=== PATIENT | female | born 1935 | race Caucasian/White ===

== ENCOUNTER 2016-08-26 02:05 | Emergency (ER) | payer MEDICAID ==
[~2016-08-26] VITALS: Ht 149.9 cm; Wt 55.0 kg
[2016-08-26 02:10] VITALS: BP 179/77; PULSE 84; RESP 16; TEMP 98.5; O2SAT 96
[2016-08-26] MEDS ORDERED: METO25TA3 PO (02:29)
[2016-08-26] MEDS ORDERED: METO2.5T PO (02:29)
[2016-08-26] MEDS ORDERED: HYDR-3801 PO (02:29)
[2016-08-26] MEDS ORDERED: MEGE40TA PO (02:29)
[2016-08-26] MEDS ORDERED: VOLT1GEL4 TOPICAL (02:29)
[2016-08-26] MEDS ORDERED: ASPI81CH CHEW (02:29)
[2016-08-26] MEDS ORDERED: SERT-132 PO (02:29)
[2016-08-26] MEDS ORDERED: FURO40TA PO (02:29)
[2016-08-26] MEDS ORDERED: VALS1TAB70 PO (02:29)
[2016-08-26] MEDS ORDERED: SODIUM CHLORIDE 0.9% FLUSH 10 ML FLUSH IV FLUSH PRN (03:15)
--- NOTE | 2016-08-26 03:34 | PD ---
HPI . Swollen abdomen Chief Complaint: GI Complaint Time Seen by Provider: 03:07 Travel History International Travel<30 days: No Contact w/Intl Traveler<30days: No Traveled to known affect area: No History of Present Illness HPI This is an elderly woman who presents to us with ascites. She is reportedly followed at another facility for ascites. Her daughter states that the ascites is secondary to heart failure. The patient was supposed to have had a paracentesis done a couple weeks ago did not have enough fluid accumulation in her abdomen toward paracentesis at that time. The daughter states that her abdomen has become acutely swollen over the course of the last 24-36 hours. The patient reports minimal discomfort. She states that she is not having any difficulty breathing. They are unsure as to what may have caused the acute exacerbation in the swelling. PFSH Past Medical History Hypertension: Yes Medical other: Yes (LIVER DYSFUNCTION WITH PARACENTESIS) Influenza Vaccination: Yes : 3 Para: 3 Past Surgical History Cardiac Surgery: Yes (PACEMAKER) Hysterectomy: Yes Pacemaker: Yes (BIOTRONIK) Valve Replacement: Yes Social History Alcohol Use: No Tobacco Use: No Substance Use: No Allergies-Medications (Allergen,Severity, Reaction): Coded Allergies: No Known Allergies (Unverified , 08/26/16) Reported Meds & Prescriptions Reported Meds & Active Scripts Active Reported Voltaren (Diclofenac Sodium) 100 Gm Gel..gram. 1 Applic TOPICAL BID Valsartan 320 Mg Tab 320 Mg PO DAILY Sertraline (Sertraline HCl) 50 Mg Tab 50 Mg PO DAILY Metoprolol Tartrate 25 Mg Tab 25 Mg PO DAILY Metolazone 2.5 Mg Tab 2.5 Mg PO Megestrol (Megestrol Acetate) 40 Mg Tab 40 Mg PO DAILY Hydralazine (Hydralazine HCl) 100 Mg Tab 25 Mg PO BID Take with meals Furosemide 40 Mg Tab 40 Mg PO DAILY Aspirin 81 Mg Chew 81 Mg CHEW DAILY Review of Systems Except as stated in HPI: all other systems reviewed are Neg General / Constitutional: No: Fever, Chills Cardiovascular: No: Chest Pain or Discomfort Respiratory: No: Shortness of Breath Gastrointestinal: No: Nausea, Vomiting, Diarrhea, Abdominal Pain, Loss of Appetite Genitourinary: No: Urgency, Frequency, Dysuria Physical Exam Narrative GENERAL: Elderly woman who does not appear to be in any acute distress. SKIN: Warm and dry. HEAD: Atraumatic. Normocephalic. EYES: Pupils equal and round. Extraocular movements are intact. ENT: No nasal bleeding or discharge. Mucous membranes pink and moist. NECK: Trachea midline. Neck is supple. CARDIOVASCULAR: Regular rate and rhythm. RESPIRATORY: No accessory muscle use. GASTROINTESTINAL: Abdomen soft. Nontender. She is distended with ascites but her abdomen is soft. MUSCULOSKELETAL: No obvious deformities. No edema. NEUROLOGICAL: Awake and alert. No obvious cranial nerve deficits. Motor grossly within normal limits. Normal speech. PSYCHIATRIC: Appropriate mood and affect; insight and judgment normal. Data Data Last Documented VS Vital Signs Date Time Temp Pulse Resp B/P Pulse Ox O2 Delivery O2 Flow Rate FiO2 08/26/16 02:10 98.5 84 16 179/77 96 Room Air Orders Complete Blood Count With Diff (08/26/16 03:09) Comprehensive Metabolic Panel (08/26/16 03:09) Prothrombin Time / Inr (Pt) (08/26/16 03:09) Act Partial Throm Time (Ptt) (08/26/16 03:09) Ct Abd/Pel W/O Iv Contrast (08/26/16 03:09) Iv Access Insert/Monitor (08/26/16 03:09) Sodium Chloride 0.9% Flush (Ns Flush) (08/26/16 03:15) Labs Laboratory Tests Test 08/26/16 04:25 White Blood Count 6.3 TH/MM3 Red Blood Count 2.92 MIL/MM3 Hemoglobin 8.6 GM/DL Hematocrit 26.8 % Mean Corpuscular Volume 91.7 FL Mean Corpuscular Hemoglobin 29.6 PG Mean Corpuscular Hemoglobin 32.2 % Concent Red Cell Distribution Width 15.7 % Platelet Count 176 TH/MM3 Mean Platelet Volume 9.1 FL Neutrophils (%) (Auto) 82.0 % Lymphocytes (%) (Auto) 6.3 % Monocytes (%) (Auto) 9.9 % Eosinophils (%) (Auto) 0.9 % Basophils (%) (Auto) 0.9 % Neutrophils # (Auto) 5.1 TH/MM3 Lymphocytes # (Auto) 0.4 TH/MM3 Monocytes # (Auto) 0.6 TH/MM3 Eosinophils # (Auto) 0.1 TH/MM3 Basophils # (Auto) 0.1 TH/MM3 CBC Comment DIFF FINAL Differential Comment Prothrombin Time 12.8 SEC Prothromb Time International 1.2 RATIO Ratio Activated Partial 24.6 SEC Thromboplast Time Sodium Level 143 MEQ/L Potassium Level 3.6 MEQ/L Chloride Level 106 MEQ/L Carbon Dioxide Level 27.5 MEQ/L Anion Gap 10 MEQ/L Blood Urea Nitrogen 91 MG/DL Creatinine 2.43 MG/DL Estimat Glomerular Filtration 19 ML/MIN Rate Random Glucose 151 MG/DL Calcium Level 8.8 MG/DL Total Bilirubin 0.6 MG/DL Aspartate Amino Transf 27 U/L (AST/SGOT) Alanine Aminotransferase 16 U/L (ALT/SGPT) Alkaline Phosphatase 86 U/L Total Protein 8.6 GM/DL Albumin 3.6 GM/DL [facility] Medical Decision Making Medical Screen Exam Complete: Yes Emergency Medical Condition: Yes Medical Record Reviewed: Yes (this patient has never been seen at our facility before.) Differential Diagnosis Differential diagnosis includes but is not limited to ascites, fecal impaction Narrative Course This patient presents with a swollen abdomen. She reportedly has a history of ascites which has been drained in the past. This is all been done at another facility. CBC & BMP Diagram 08/26/16 04:25 Coags are normal. Last Impressions Abdomen/Pelvis CT 08/26/16 0309 Signed Impressions: Service Date/Time: Friday, August 26, 2016 03:37 - CONCLUSION: 1. There is moderate amount of ascites throughout the abdomen and pelvis and the liver appears cirrhotic and clinical correlation is suggested. 2. Large anterior abdominal wall hernia with multiloculated septated fluid collections within the anterior abdominal wall may be loculated and septated ascites, however inflammatory change and/or abscess is difficult to exclude. There is no evidence for bowel obstruction, however incarceration of the herniated mesenteric fat is difficult to exclude. 3. Cholelithiasis. Joyce Matthew MD I have put in a consult to interventional radiology for a paracentesis. Diagnosis Primary Impression: Ascites Qualified Code: R18.8 - Other ascites Patient Instructions: Ascites (DC), General Instructions Condition: Stable Cassi Goldman MD Aug 26, 2016 03:33
--- NOTE | 2016-08-26 04:04 | RADRPT ---
EXAM DATE/TIME: 08/26/2016 03:37 [facility] COMPARISON: No previous studies available for comparison. INDICATIONS : Abdominal distention. Possible ascites. ORAL CONTRAST: No oral contrast ingested. RADIATION DOSE: 7.97 CTDIvol (mGy) MEDICAL HISTORY : Hypertension. Congestive heart failure. SURGICAL HISTORY : Hysterectomy. Pacemaker. ENCOUNTER: Initial ACUITY: 1 day PAIN SCALE: 5/10 LOCATION: Bilateral abdomen TECHNIQUE: Volumetric scanning of the abdomen and pelvis was performed. Using automated exposure control and ad justment of the mA and/or kV according to patient size, radiation dose was kept as low as reasonably achievable to obtain optimal diagnostic quality images. FINDINGS: There is moderate amount of ascites throughout the abdomen and pelvis. There is a large anterior abdominal wall hernia with herniation of loops of large and small bowel and ascitic fluid. Within th e anterior abdominal wall subcutaneous tissue there multiple loculated and septated fluid collections probably loculated ascites, however inflammatory change and or abscess is difficult to exclude. [employer] lani vascular calcifications are present involving the aorta, iliac arteries without any significant s tenosis or aneurysmal dilatations for technique. Slight bibasilar atelectasis and/or infiltrate is se en. The liver is somewhat shrunken in appearance and may be cirrhotic. The spleen, adrenals are unrem arkable and there is an approximate 9.1 cm simple cyst in the left kidney. There are scattered divert iculi mainly in the sigmoid colon without definite signs of diverticulitis. The gallbladder demonstra jv multiple stones without gallbladder wall thickening, or pericholecystic fluid. CONCLUSION: 1. There is moderate amount of ascites throughout the abdomen and pelvis and the liver appears cirrho tic and clinical correlation is suggested. 2. Large anterior abdominal wall hernia with multiloculated septated fluid collections within the ant erior abdominal wall may be loculated and septated ascites, however inflammatory change and/or absces s is difficult to exclude. There is no evidence for bowel obstruction, however incarceration of the h erniated mesenteric fat is difficult to exclude. 3. Cholelithiasis. Joyce Matthew MD on August 26, 2016 at 3:54 Board Certified Radiologist. This report was verified electronically.
[2016-08-26 04:41] LABS: AUTOMATED NEUTROPHIL # 5.1 TH/MM3 (1.8-7.7); BASOPHIL # 0.1 TH/MM3 (0-0.2); BASOPHIL % 0.9 % (0.0-2.0); EOSINOPHIL # 0.1 TH/MM3 (0-0.4); EOSINOPHIL % 0.9 % (0.0-4.0); HEMATOCRIT 26.8 % (35.0-46.0); HEMO FLAGS DIFF FINAL; LYMPH % 6.3 % (9.0-44.0); LYMPHOCYTE # 0.4 TH/MM3 (1.0-4.8); MEAN CELL VOLUME 91.7 FL (80.0-100.0); MEAN CORPUSCULAR HEMOGLOBIN 29.6 PG (27.0-34.0); MEAN CORPUSCULAR HGB CONC 32.2 % (32.0-36.0); MONO % 9.9 % (0.0-8.0); PLATELET COUNT 176 TH/MM3 (150-450); RED BLOOD COUNT 2.92 MIL/MM3 (4.00-5.30); RED CELL DISTRIBUTION WIDTH 15.7 % (11.6-17.2); WHITE BLOOD COUNT 6.3 TH/MM3 (4.0-11.0)
[2016-08-26 04:54] LABS: APTT (PATIENT) 24.6 SEC (24.3-30.1); INTERNATIONAL NORMALIZED RATIO 1.2 RATIO; PROTHROMBIN TIME - PATIENT 12.8 SEC (9.8-11.6)
[2016-08-26 04:59] LABS: ALT (GPT) 16 U/L (10-53)
[2016-08-26 05:00] LABS: ANION GAP 10 MEQ/L (5-15); AST (GOT) 27 U/L (15-37); BICARBONATE 27.5 MEQ/L (21.0-32.0); BLOOD UREA NITROGEN 91 MG/DL (7-18); CHLORIDE 106 MEQ/L (98-107); GLOMERULAR FILTRATION RATE 19 ML/MIN (>89); POTASSIUM 3.6 MEQ/L (3.5-5.1); SODIUM (NA) 143 MEQ/L (136-145)
[2016-08-26 05:01] LABS: ALKALINE PHOSPHATASE 86 U/L (45-117); TOTAL BILIRUBIN ADULT 0.6 MG/DL (0.2-1.0)
--- NOTE | 2016-08-26 09:55 | RADRPT ---
EXAM DATE/TIME: 08/26/2016 09:09 [facility] COMPARISON: No previous studies available for comparison. INDICATIONS : Ascites. MEDICAL HISTORY : Hypertension. Liver dysfunction. SURGICAL HISTORY : Pacemaker. Hysterectomy. Valve replacement. ENCOUNTER: Initial ACUITY: 1 day PAIN SCORE: 2/10 LOCATION: Abdomen. AREA EVALUATED: Abdominal quadrants. FINDINGS: Imaging of the abdomen and pelvis was performed to evaluate for ascites for possible paracentesis. Lo culated fluid is identified in the right lower quadrant. CONCLUSION: Loculated fluid in the right lower quadrant. Determined to be insufficient for safe paracentesis. Ilia Harrington MD on August 26, 2016 at 9:52 Board Certified Radiologist. This report was verified electronically.
--- NOTE | 2016-08-26 10:22 | PD ---
Physical Exam Narrative Patient was seen by Dr. Goldman overnight. Dr. Goldman consulted IR for drainage for her ascites. I spoke with IR this morning. Per the radiologist, the ascites is too loculated to be drained and he cannot perform the procedure. I spoke with the patient and her family and explained this. The daughter is requesting a dose of lasix to help with the fluid. I explained that her Cr is elevated and it is difficult to balance the diuretic and kidney function. Patient given 20mg Lasix here. Data Data Last Documented VS Vital Signs Date Time Temp Pulse Resp B/P Pulse Ox O2 Delivery O2 Flow Rate FiO2 08/26/16 02:10 98.5 84 16 179/77 96 Room Air Orders Complete Blood Count With Diff (08/26/16 03:09) Comprehensive Metabolic Panel (08/26/16 03:09) Prothrombin Time / Inr (Pt) (08/26/16 03:09) Act Partial Throm Time (Ptt) (08/26/16 03:09) Ct Abd/Pel W/O Iv Contrast (08/26/16 03:09) Iv Access Insert/Monitor (08/26/16 03:09) Sodium Chloride 0.9% Flush (Ns Flush) (08/26/16 03:15) Invasive Rad Dept Consult (08/26/16 ) Us Abdomen Lower Limited (08/26/16 ) Furosemide Inj (Lasix Inj) (08/26/16 10:30) Labs Laboratory Tests Test 08/26/16 04:25 White Blood Count 6.3 TH/MM3 Red Blood Count 2.92 MIL/MM3 Hemoglobin 8.6 GM/DL Hematocrit 26.8 % Mean Corpuscular Volume 91.7 FL Mean Corpuscular Hemoglobin 29.6 PG Mean Corpuscular Hemoglobin 32.2 % Concent Red Cell Distribution Width 15.7 % Platelet Count 176 TH/MM3 Mean Platelet Volume 9.1 FL Neutrophils (%) (Auto) 82.0 % Lymphocytes (%) (Auto) 6.3 % Monocytes (%) (Auto) 9.9 % Eosinophils (%) (Auto) 0.9 % Basophils (%) (Auto) 0.9 % Neutrophils # (Auto) 5.1 TH/MM3 Lymphocytes # (Auto) 0.4 TH/MM3 Monocytes # (Auto) 0.6 TH/MM3 Eosinophils # (Auto) 0.1 TH/MM3 Basophils # (Auto) 0.1 TH/MM3 CBC Comment DIFF FINAL Differential Comment Prothrombin Time 12.8 SEC Prothromb Time International 1.2 RATIO Ratio Activated Partial 24.6 SEC Thromboplast Time Sodium Level 143 MEQ/L Potassium Level 3.6 MEQ/L Chloride Level 106 MEQ/L Carbon Dioxide Level 27.5 MEQ/L Anion Gap 10 MEQ/L Blood Urea Nitrogen 91 MG/DL Creatinine 2.43 MG/DL Estimat Glomerular Filtration 19 ML/MIN Rate Random Glucose 151 MG/DL Calcium Level 8.8 MG/DL Total Bilirubin 0.6 MG/DL Aspartate Amino Transf 27 U/L (AST/SGOT) Alanine Aminotransferase 16 U/L (ALT/SGPT) Alkaline Phosphatase 86 U/L Total Protein 8.6 GM/DL Albumin 3.6 GM/DL MDM Supervised Visit with ANASTASIA: No Narrative Course Patient came to the hospital because she is uncomfortable from the large ascites. She is not having pain. She has had no fevers. She denies any SOB. Her daughter says that she does not want to be admitted to the hospital and they would like to take her home. She is advised to follow up with her PCP and gastroenterology for further management. Advised to return to the ED as needed for any worsening symptoms. Diagnosis Primary Impression: Ascites Qualified Code: R18.8 - Other ascites Patient Instructions: General Instructions, Ascites (DC) Disposition: 01 DISCHARGE HOME Condition: Stable Evita Cheung MD Aug 26, 2016 10:22
[2016-08-26] MEDS ORDERED: FUROSEMIDE 20 MG/2 ML VIAL IV PUSH ONE (10:30)
== END 2016-08-26 11:24 | disposition home or self-care (01) ==
LOC: NEPC 02:05
DX: R18.8 Other ascites (principal); I10 Essential (primary) hypertension; K76.89 Other specified diseases of liver
CPT/HCPCS: 74176; 76705; 80053; 85025; 85610; 85730; 96374; 99285; J1940